=== PATIENT | female | born 1950 | race Caucasian/White ===

== ENCOUNTER 2018-04-28 10:22 | Emergency (ER) | payer OTHER ==
[~2018-04-28] VITALS: Ht 157.5 cm; Wt 45.4 kg
[~2018-04-28 10:22] MED LIST: ACIDOPHILUS LA1 EACH PO; AUBAGIO14 MG; CEFADROXIL500 MG PO; CENTRUM SILVER1 EAC2 PO; METFORMIN HYDRO25 GM; PERCOCET 5/3251 TAB PO; XARELTO10 MG PO; ZOLOFT50 MG
[2018-04-28] MEDS ORDERED: AUBAGIO14 MG PO (10:37)
[2018-04-28] MEDS ORDERED: ZOLOFT25 MG PO (10:38)
[2018-04-28] MEDS ORDERED: METOPROLOL SUCC25 MG PO (10:38)
== END 2018-04-28 13:10 | disposition home or self-care (01) ==
LOC: ER 10:22
DX: S00.83XA Contusion of other part of head, initial encounter (principal); W18.39XA Other fall on same level, initial encounter; Y93.89 Activity, other specified; Y92.098 Other place in other non-institutional residence as the place of occurrence of the external cause; Y99.8 Other external cause status

== ENCOUNTER → 2021-01-07 15:00 | Outpatient (CLI) | payer OTHER ==
[~2021-01-07 15:00] MED LIST changes: +AUBAGIO14 MG PO; +METOPROLOL SUCC25 MG PO; +ZOLOFT25 MG PO
== END | disposition home or self-care (01) ==
LOC: PPH VACUNA 15:00
DX: Z23 Encounter for immunization (principal)